=== PATIENT | male | born 1985 | race Caucasian/White ===

== ENCOUNTER 2017-06-20 09:25 | Emergency (ER) | payer MEDICAID ==
[2017-06-20 09:38] VITALS: BP 131/82
[2017-06-20] MEDS ORDERED: ACETAMINOPHEN 500 MG TABLET PO STA (09:45)
[2017-06-20] MEDS ORDERED: ACETAMINOPHEN 500 MG TABLET PO ONE (09:47)
--- NOTE | 2017-06-20 10:59 | ED Physician Documentation ---
PD HPI NVD - Stated complaint Stated Complaint: VOMITING - Chief complaint Chief Complaint: General - History obtained from History obtained from: Patient - History of Present Illness Timing - onset: Today, Last night Timing - details: Abrupt onset, Still present Associated symptoms: Fever. No: Chest pain Contributing factors: Sick contact (his had similar symptoms 4-5 days ago and is only getting better now.). No: Bad food, Travel, Recent antibiotics Similar symptoms before: Has not had sx before Recently seen: Not recently seen Review of Systems Constitutional: denies: Fever, Chills Nose: denies: Rhinorrhea / runny nose, Congestion Throat: denies: Sore throat Respiratory: denies: Cough GI: reports: Nausea, Vomiting, Diarrhea. denies: Abdominal Pain PD PAST MEDICAL HISTORY - Past Medical History Past Medical History: No - Past Surgical History Past Surgical History: No - Present Medications Home Medications: Ambulatory Orders Medication Instructions Recorded Confirmed Diphenoxylate HCl/Atropine 1 - 2 each PO Q6H PRN #15 tablet 06/20/17 [Diphenoxylate-Atrop 2.5-0.025] Ondansetron HCl [Zofran] 4 mg PO Q6H PRN #20 tablet 06/20/17 - Allergies Allergies/Adverse Reactions: Allergies Allergy/AdvReac Type Severity Reaction Status Date / Time No Known Drug Allergies Allergy Verified 06/20/17 09:38 - Social History Does the pt smoke?: Yes Smoking Status: Current every day smoker Does the pt drink ETOH?: No Does the pt have substance abuse?: No - Immunizations Immunizations are current?: Yes - POLST Patient has POLST: No PD ED PE NORMAL - Vitals Vital signs reviewed: Yes - General General: Alert and oriented X 3, Well developed/nourished - HEENT HEENT: Pharynx benign - Neck Neck: Supple, no meningeal sign, No adenopathy - Cardiac Cardiac: RRR, No murmur - Respiratory Respiratory: Clear bilaterally - Abdomen Abdomen: Soft, Non tender - Back Back: No CVA TTP - Derm Derm: Normal color, Warm and dry - Neuro Neuro: Alert and oriented X 3, No motor deficit, Normal speech Results - Vitals Vitals: Oxygen O2 Source Room air PD MEDICAL DECISION MAKING - ED course Complexity details: considered differential (he did not feel dry enough to want IV fluids. Opted for meds and work note. Flu like illness. ), d/w patient Departure - Departure Disposition: 01 Home, Self Care Clinical Impression: Viral illness Nausea & vomiting Qualifiers: Vomiting type: unspecified Vomiting Intractability: non-intractable Qualified Code(s): R11.2 - Nausea with vomiting, unspecified Condition: Stable Record reviewed to determine appropriate education?: Yes Instructions: ED Viral Syndrome, ED Nausea Vomiting Prescriptions: Diphenoxylate HCl/Atropine [Diphenoxylate-Atrop 2.5-0.025] 1 - 2 each PO Q6H PRN #15 tablet PRN Reason: Diarrhea Ondansetron HCl [Zofran] 4 mg PO Q6H PRN #20 tablet PRN Reason: Nausea / Vomiting Comments: Small frequent fluids through the day today. Tylenol if needed for fevers and pains. Ondansetron if needed for nausea. If you develop diarrhea you can take Lomotil as well. Presumably will be sick for 2-3 days. Try to stay hydrated. Forms: Activity restrictions Discharge Date/Time: 06/20/17 11:22
[2017-06-20] MEDS ORDERED: ONDANSETRON ODT 4 MG TABLET TL STA (11:14)
[2017-06-20] MEDS ORDERED: ONDANSETRON ODT 4 MG TABLET ONE (11:22)
== END 2017-06-20 11:22 | disposition home or self-care (01) ==
LOC: ED 09:25
DX: B34.9 Viral infection, unspecified (principal); R11.2 Nausea with vomiting, unspecified; F17.200 Nicotine dependence, unspecified, uncomplicated
CPT/HCPCS: 99283; A9270; Q0162

== ENCOUNTER 2017-11-03 12:14 | Outpatient (CLI) | payer SELFPAY | END 2017-11-03 12:15 | disposition critical access hospital (66) | LOC: EMS 12:14 | PROVIDERS: ATTEND Surgery | DX: S00.93XA Contusion of unspecified part of head, initial encounter (principal) | CPT/HCPCS: A0425; A0429 ==

== ENCOUNTER 2017-11-03 12:38 | Emergency (ER) | payer SELFPAY ==
[2017-11-03] MEDS ORDERED: OLANZapine 10 MG VIAL IM STA ×3 (13:18→15:32)
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
[2017-11-03 14:01] LABS: MUDS CUTOFF CONCENTRATIONS CUTOFF CONC BELOW:
[2017-11-03 14:05] LABS: BILIRUBIN,URINE NEGATIVE (NEGATIVE); CLARITY,URINE CLEAR (CLEAR); GLUCOSE, URINE (UA) NEGATIVE (NEGATIVE); KETONES,URINE (UA) NEGATIVE (NEGATIVE); LEUKOCYTE ESTERASE, URINE NEGATIVE (NEGATIVE); NITRITE,URINE NEGATIVE (NEGATIVE); OCCULT BLOOD,URINE TRACE-LYSE (NEGATIVE); PH,URINE 5.5 PH (5.0-7.5); PROTEIN,URINE NEGATIVE (NEGATIVE); UROBILINOGEN,URINE 0.2 (NORMAL) E.U./dL (NORMAL)
[2017-11-03 14:09] LABS: BASOPHILS # (AUTO) 0.1 10^3/uL (0.0-0.1); BASOPHILS % (AUTO) 0.4 %; EOSINOPHILS % (AUTO) 0.3 %; HGB - HEMOGLOBIN 16.4 g/dL (14.0-18.0); LYMPHOCYTES # (AUTO) 2.1 10^3/uL (1.5-3.5); LYMPHOCYTES % (AUTO) 14.5 %; MEAN CORPUSCULAR HEMOGLOBIN 28.7 pg (27.0-31.0); MEAN CORPUSCULAR HGB CONC 33.5 g/dL (32.0-36.0); MEAN CORPUSCULAR VOLUME 85.7 fL (80.0-94.0); MEAN PLATELET VOLUME 8.6 fL (7.4-11.4); MONOCYTES % (AUTO) 6.7 %; NEUTROPHILS # (AUTO) 11.1 10^3/uL (1.5-6.6); NEUTROPHILS % (AUTO) 78.1 %; PLT - PLATELET COUNT 218 10^3/uL (130-450); RED CELL DISTRIBUTION WIDTH 13.7 % (12.0-15.0); WHITE BLOOD COUNT 14.3 x10^3/uL (4.8-10.8)
[2017-11-03 14:15] LABS: AMPHETAMINE SCREEN,URINE NEGATIVE (NEGATIVE); BENZODIAZEPINES SCREEN, URINE NEGATIVE (NEGATIVE); COCAINE SCREEN URINE NEGATIVE (NEGATIVE); METHADONE SCREEN, URINE NEGATIVE (NEGATIVE); METHAMPHETAMINES SCREEN, URINE POSITIVE (NEGATIVE); OPIATE SCREEN, URINE NEGATIVE (NEGATIVE); OXYCODONE SCREEN, URINE NEGATIVE (NEGATIVE); PROPOXYPHENE SCREEN, URINE NEGATIVE (NEGATIVE); TRICYCLIC ANTIDEPRESSANT,URINE NEGATIVE (NEGATIVE)
[2017-11-03 14:24] LABS: ACETAMINOPHEN < 10 ug/mL (10-30); ALBUMIN/GLOBULIN RATIO 1.5 (1.0-2.2); ALKALINE PHOSPHATASE 66 IU/L (42-121); ALT ALANINE AMINOTRANSFERASE 31 IU/L (10-60); AST ASPARTATE AMINOTRANSFERASE 29 IU/L (10-42); BILIRUBIN,TOTAL 0.5 mg/dL (0.2-1.0); BUN - BLOOD UREA NITROGEN 5 mg/dL (6-20); CALCIUM 9.3 mg/dL (8.5-10.3); CARBON DIOXIDE - CO2 26 mmol/L (21-32); CHLORIDE 102 mmol/L (101-111); CREATININE 0.8 mg/dL (0.6-1.2); GFR - MDRD 111 (>89); GLUCOSE 108 mg/dL (70-100); LIPASE 12 U/L (22-51); SALICYLATE < 6.0 mg/dL; SODIUM 140 mmol/L (135-145); TOTAL PROTEIN 8.4 g/dL (6.7-8.2)
--- NOTE | 2017-11-03 15:14 | CT Preliminary Report ---
Exam: CT HEAD W/O IMPRESSION: 1. Negative noncontrast brain CT. No intracranial hemorrhage or space-occupying lesion. 2. Mild scalp swelling near the vertex. No fracture. [facility] SITE ID: [id number]
--- NOTE | 2017-11-03 15:14 | CT Report ---
EXAM: CT HEAD EXAM DATE: 11/03/2017 02:56 PM. CLINICAL HISTORY: Head injury, ALOC. COMPARISON: None. TECHNIQUE: Multiaxial CT images were obtained from the foramen magnum to the vertex. Reformats: Coron al. IV contrast: None. In accordance with CT protocol optimization, one or more of the following dose reduction techniques w ere utilized for this exam: automated exposure control, adjustment of mA and/or KV based on patient s ize, or use of iterative reconstructive technique. FINDINGS: Parenchyma: No intraparenchymal hemorrhage. No focal mass effect, midline shift, or CT findings of ac [place] infarction. Ureña-white differentiation is distinct. Extraaxial Spaces: Normal. No subdural or epidural collections identified. Ventricles: Normal in size and position. Sinuses and Orbits: Imaged paranasal sinuses, orbits, and mastoids show no significant abnormality. Bones: No evidence of fracture or calvarial defect. Other: Mild scalp swelling near the vertex. IMPRESSION: 1. Negative noncontrast brain CT. No intracranial hemorrhage or space-occupying lesion. 2. Mild scalp swelling near the vertex. No fracture. [facility] Referring Provider Line: [phone] SITE ID: [id number]
[2017-11-03 22:05] VITALS: BP 129/81
[2017-11-03] MEDS ORDERED: ACETAMINOPHEN 325 MG TABLET PO STA (22:11)
== END 2017-11-03 22:18 | disposition home or self-care (01) ==
LOC: EDUNIT# → ED 12:38
DX: F15.10 Other stimulant abuse, uncomplicated (principal); F10.920 Alcohol use, unspecified with intoxication, uncomplicated; S09.90XA Unspecified injury of head, initial encounter; X58.XXXA Exposure to other specified factors, initial encounter; F17.200 Nicotine dependence, unspecified, uncomplicated
CPT/HCPCS: 36415; 51701; 70450; 80053; 80306; 80307; 80320; 80329; 81003; 83690; 85025; 96372; 99284; 99285; A9270; 81001; 87086

== ENCOUNTER 2018-01-30 17:55 | Emergency (ER) | payer SELFPAY ==
[2018-01-30 18:08] VITALS: BP 145/79
--- NOTE | 2018-01-30 18:12 | ED Physician Documentation ---
PD HPI HEENT - Stated complaint Stated Complaint: COUGH/RUNNY NOSE/FEVER/OTT - Chief complaint Chief Complaint: Heent - History obtained from History obtained from: Patient - History of Present Illness Timing - onset: Other (He has had about 3 days of productive cough, nasal drainage and sinus pain but now today also has a toothache, bottom right last molar. No fevers but he feels hot and cold.) Review of Systems Constitutional: reports: Chills. denies: Fever Ears: denies: Ear pain Nose: reports: Rhinorrhea / runny nose, Congestion Throat: reports: Dental pain / toothache, Sore throat Respiratory: reports: Cough. denies: Dyspnea PD PAST MEDICAL HISTORY - Past Surgical History Past Surgical History: No - Present Medications Home Medications: Ambulatory Orders Medication Instructions Recorded Confirmed Diphenoxylate HCl/Atropine 1 - 2 each PO Q6H PRN #15 tablet 06/20/17 [Diphenoxylate-Atrop 2.5-0.025] Ondansetron HCl [Zofran] 4 mg PO Q6H PRN #20 tablet 06/20/17 Amoxicillin 500 mg PO TID #30 capsule 01/30/18 Guaifenesin/Pseudoephedrne HCl 1 each PO BID PRN #20 tab.er.12h 01/30/18 [Mucinex D ER 600-60 mg Tablet] Ibuprofen [Motrin] 800 mg PO Q8H PRN #30 tablet 01/30/18 Mometasone Furoate [Nasonex] 1 spray NS BID #1 spray.pump 01/30/18 guaiFENesin/CODEINE [Robitussin AC] 5 - 10 ml PO Q6H PRN #120 ml 01/30/18 - Allergies Allergies/Adverse Reactions: Allergies Allergy/AdvReac Type Severity Reaction Status Date / Time No Known Drug Allergies Allergy Verified 06/20/17 09:38 - Social History Does the pt smoke?: Yes Smoking Status: Current every day smoker Does the pt drink ETOH?: Yes Does the pt have substance abuse?: Yes - Immunizations Immunizations are current?: Yes - POLST Patient has POLST: No PD ED PE NORMAL - Vitals Vital signs reviewed: Yes - General General: Alert and oriented X 3, No acute distress - HEENT HEENT: Ears normal, Pharynx benign, Other (He has several cavities, he has a tender tooth, the last molar on the right mandible. There is a large filling there is a looks okay and there is no swelling or sublingual edema.) - Neck Neck: Supple, no meningeal sign, No bony TTP - Cardiac Cardiac: RRR, No murmur - Respiratory Respiratory: No respiratory distress, Other (Slight expiratory wheezes, nonfocal ) - Abdomen Abdomen: Non tender - Psych Psych: Normal mood, Normal affect Results - Vitals Vitals: Vital Signs - 24 hr 01/30/18 18:06 Temperature 36.3 C L Heart Rate 79 Respiratory 18 Rate Blood Pressure 145/79 H Oxygen O2 Source Room air PD MEDICAL DECISION MAKING - Sepsis Event Vital Signs: Vital Signs - 24 hr 01/30/18 18:06 Temperature 36.3 C L Heart Rate 79 Respiratory 18 Rate Blood Pressure 145/79 H Oxygen O2 Source Room air Departure - Departure Disposition: 01 Home, Self Care Clinical Impression: Viral URI with cough, Toothache Condition: Good Record reviewed to determine appropriate education?: Yes Instructions: ED Viral Syndrome, ED Tooth Pain Prescriptions: Amoxicillin 500 mg PO TID #30 capsule guaiFENesin/CODEINE [Robitussin AC] 5 - 10 ml PO Q6H PRN #120 ml PRN Reason: Cough Guaifenesin/Pseudoephedrne HCl [Mucinex D ER 600-60 mg Tablet] 1 each PO BID PRN #20 tab.er.12h PRN Reason: congestion Ibuprofen [Motrin] 800 mg PO Q8H PRN #30 tablet PRN Reason: PAIN &/OR FEVER Mometasone Furoate [Nasonex] 1 spray NS BID #1 spray.pump Comments: It is very important that you follow-up with a dentist. When it comes to dental problems like yours, the emergency department can only offer a short- term solution to your long-term problem. A couple of low cost options for dental care include: [facility] in [place], calls [phone] for an appointment Or [facility] in [place], call [phone] for an appointment. Forms: Activity restrictions
== END 2018-01-30 18:35 | disposition home or self-care (01) ==
LOC: ED 17:55
DX: J06.9 Acute upper respiratory infection, unspecified (principal); B97.89 Other viral agents as the cause of diseases classified elsewhere; K08.89 Other specified disorders of teeth and supporting structures; F17.200 Nicotine dependence, unspecified, uncomplicated
CPT/HCPCS: 99283

== ENCOUNTER 2018-09-13 18:25 | Emergency (ER) | payer OTHER ==
[2018-09-13 18:32] VITALS: BP 150/83
--- NOTE | 2018-09-13 19:19 | ED Physician Documentation ---
PD HPI URI - Stated complaint Stated Complaint: FLU SYMPTOMS - Chief complaint Chief Complaint: Resp - History obtained from History obtained from: Patient - Additional information Additional information: 33-year-old male presents the emergency department with 2 hours of nasal congestion, cough, body aches and generally not feeling well. No reports of respiratory distress, chest pain or abdominal pain. Symptoms are described as moderate. No other associated symptoms Review of Systems Constitutional: reports: Fever, Chills, Myalgias, Fatigue Eyes: denies: Loss of vision Nose: reports: Congestion Throat: reports: Sore throat Respiratory: reports: Cough : denies: Dysuria Skin: denies: Rash PD PAST MEDICAL HISTORY - Past Medical History Past Medical History: No Respiratory: Other Neuro: Other - Past Surgical History Past Surgical History: No - Present Medications Home Medications: Ambulatory Orders Medication Instructions Recorded Confirmed No Known Home Medications 09/13/18 09/13/18 - Allergies Allergies/Adverse Reactions: Allergies Allergy/AdvReac Type Severity Reaction Status Date / Time No Known Drug Allergies Allergy Verified 09/13/18 18:32 - Social History Does the pt smoke?: Yes Smoking Status: Current every day smoker Does the pt drink ETOH?: Yes Does the pt have substance abuse?: Yes - Immunizations Immunizations are current?: Yes - POLST Patient has POLST: No PD ED PE NORMAL - General General: Alert and oriented X 3, No acute distress - HEENT HEENT: Atraumatic, PERRL, EOMI, Ears normal, Moist mucous membranes - Neck Neck: Supple, no meningeal sign - Cardiac Cardiac: RRR, Strong equal pulses - Respiratory Respiratory: No respiratory distress, Clear bilaterally - Derm Derm: Normal color - Extremities Extremities: No deformity, No edema - Neuro Neuro: Alert and oriented X 3, Normal speech - Psych Psych: Normal mood Results - Vitals Vitals: Vital Signs - 24 hr 09/13/18 18:31 Temperature 36.9 C Heart Rate 98 Respiratory 20 Rate Blood Pressure 150/83 H O2 Saturation 99 Oxygen O2 Source Room air - Labs Labs: Laboratory Tests 09/13/18 18:35 Influenza A (Rapid) Negative Influenza B (Rapid) Negative PD MEDICAL DECISION MAKING - ED course ED course: Viral symptoms, no clinical findings to suggest sepsis or pneumonia. Patient is appropriate for outpatient management. The patient will return for any worsening or any concerns Departure - Departure Disposition: 01 Home, Self Care Clinical Impression: Viral URI with cough Condition: Good Instructions: ED URI Viral Comments: Follow up with Primary Care as needed Please return to the emergency department for worsening symptoms or any concerns Forms: Activity restrictions
== END 2018-09-13 19:24 | disposition home or self-care (01) ==
LOC: ED 18:25
DX: J06.9 Acute upper respiratory infection, unspecified (principal); F17.200 Nicotine dependence, unspecified, uncomplicated
CPT/HCPCS: 87275; 87276; 99282; 99283

== ENCOUNTER 2018-11-17 13:37 | Outpatient (CLI) | payer OTHER | END 2018-11-17 13:38 | disposition critical access hospital (66) | LOC: EMS 13:37 | PROVIDERS: ATTEND Surgery | DX: R40.20 Unspecified coma (principal); R06.89 Other abnormalities of breathing | CPT/HCPCS: A0425; A0427 ==

== ENCOUNTER 2018-11-17 13:48 | Emergency (ER) | payer OTHER ==
[2018-11-17] MEDS ORDERED: fentaNYL 100 MCG/2 ML VIAL IVP STA (13:57)
[2018-11-17] MEDS ORDERED: SODIUM CHLORIDE 0.9% 1,000 ML IV ONE (13:58)
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
[2018-11-17 14:09] LABS: BASOPHILS # (AUTO) 0.1 10^3/uL (0.0-0.1); BASOPHILS % (AUTO) 1.2 %; EOSINOPHILS # (AUTO) 0.1 10^3/uL (0.0-0.7); EOSINOPHILS % (AUTO) 1.4 %; HGB - HEMOGLOBIN 13.9 g/dL (14.0-18.0); LYMPHOCYTES % (AUTO) 14.4 %; MEAN CORPUSCULAR HGB CONC 33.1 g/dL (32.0-36.0); MEAN CORPUSCULAR VOLUME 90.7 fL (80.0-94.0); MEAN PLATELET VOLUME 8.8 fL (7.4-11.4); MONOCYTES # (AUTO) 0.3 10^3/uL (0.0-1.0); MONOCYTES % (AUTO) 4.9 %; NEUTROPHILS # (AUTO) 5.4 10^3/uL (1.5-6.6); NEUTROPHILS % (AUTO) 78.1 %; PLT - PLATELET COUNT 164 10^3/uL (130-450); RED BLOOD COUNT 4.62 10^6/uL (4.70-6.10); RED CELL DISTRIBUTION WIDTH 14.1 % (12.0-15.0); WHITE BLOOD COUNT 6.9 x10^3/uL (4.8-10.8)
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
[2018-11-17 14:19] LABS: ALBUMIN 4.2 g/dL (3.2-5.5); ALBUMIN/GLOBULIN RATIO 1.4 (1.0-2.2); BILIRUBIN,TOTAL 0.4 mg/dL (0.2-1.0); CALCIUM 8.5 mg/dL (8.5-10.3); TOTAL PROTEIN 7.3 g/dL (6.7-8.2)
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
[2018-11-17 15:01] LABS: MUDS CUTOFF CONCENTRATIONS CUTOFF CONC BELOW:
[2018-11-17 15:18] LABS: AMPHETAMINE SCREEN,URINE NEGATIVE (NEGATIVE); BENZODIAZEPINES SCREEN, URINE NEGATIVE (NEGATIVE); COCAINE SCREEN URINE NEGATIVE (NEGATIVE); METHADONE SCREEN, URINE NEGATIVE (NEGATIVE); METHAMPHETAMINES SCREEN, URINE NEGATIVE (NEGATIVE); OPIATE SCREEN, URINE NEGATIVE (NEGATIVE); OXYCODONE SCREEN, URINE NEGATIVE (NEGATIVE); PROPOXYPHENE SCREEN, URINE NEGATIVE (NEGATIVE); TRICYCLIC ANTIDEPRESSANT,URINE NEGATIVE (NEGATIVE)
[2018-11-17] MEDS ORDERED: ONDANSETRON 4 MG/2 ML VIAL IVP STA (17:09)
[2018-11-17 17:34] VITALS: BP 141/93
== END 2018-11-17 17:39 | disposition home or self-care (01) ==
LOC: EDUNIT# → ED 13:48
DX: F10.120 Alcohol abuse with intoxication, uncomplicated (principal); J96.90 Respiratory failure, unspecified, unspecified whether with hypoxia or hypercapnia; R40.20 Unspecified coma; F17.200 Nicotine dependence, unspecified, uncomplicated
CPT/HCPCS: 36415; 51702; 70450; 71045; 72125; 80053; 80306; 80320; 83690; 85025; 94002; 94770; 96361; 96374; 96375; 99285; 99291

== ENCOUNTER 2019-03-09 18:46 | Outpatient (CLI) | payer OTHER | END 2019-03-09 18:47 | disposition E | LOC: EMS 18:46 | PROVIDERS: ATTEND Surgery | CPT/HCPCS: A0425; A0433 ==